=== PATIENT | female | born 1985 | race Caucasian/White ===

== ENCOUNTER 2016-04-27 07:50 | Emergency (ER) | payer OTHER ==
[2016-04-27] MEDS ORDERED: IBUPROFEN 800 MG TABLET PO STA (07:57)
[2016-04-27] MEDS ORDERED: IBUPROFEN 800 MG TABLET PO ONE (08:05)
== END 2016-04-27 09:25 | disposition home or self-care (01) ==
DX: S39.012A Strain of muscle, fascia and tendon of lower back, initial encounter (principal); S80.01XA Contusion of right knee, initial encounter; V43.52XA Car driver injured in collision with other type car in traffic accident, initial encounter; Y92.488 Other paved roadways as the place of occurrence of the external cause
CPT/HCPCS: 72100; 73564; 99283; 99284; A9270

== ENCOUNTER → 2018-01-30 | Outpatient (CLI) | payer OTHER ==
[2018-01-30 19:27] LABS: BILIRUBIN,URINE NEGATIVE (NEGATIVE); GLUCOSE, URINE (UA) NEGATIVE (NEGATIVE); KETONES,URINE (UA) NEGATIVE (NEGATIVE); LEUKOCYTE ESTERASE, URINE NEGATIVE (NEGATIVE); NITRITE,URINE NEGATIVE (NEGATIVE); OCCULT BLOOD,URINE NEGATIVE (NEGATIVE); PH,URINE 7.5 PH (5.0-7.5); PROTEIN,URINE NEGATIVE (NEGATIVE); UROBILINOGEN,URINE 0.2 (NORMAL) E.U./dL (NORMAL)
[2018-01-30 19:41] LABS: BACTERIA,URINE Many /HPF (None Seen); CLARITY,URINE HAZY (CLEAR); RBC,URINE None Seen /HPF (0-5); SQUAMOUS EPITHELIAL CELL,UR MANY Squamous (<= Few)
== END ==
LOC: LAB.R 15:40
PROVIDERS: ATTEND Obstetrics & Gynecology
DX: R30.0 Dysuria (principal)
CPT/HCPCS: 81001

== ENCOUNTER 2018-02-05 16:06 | Outpatient (CLI) | payer OTHER ==
[2018-02-05 16:28] LABS: BILIRUBIN,URINE NEGATIVE (NEGATIVE); GLUCOSE, URINE (UA) NEGATIVE (NEGATIVE); KETONES,URINE (UA) NEGATIVE (NEGATIVE); LEUKOCYTE ESTERASE, URINE NEGATIVE (NEGATIVE); NITRITE,URINE NEGATIVE (NEGATIVE); OCCULT BLOOD,URINE NEGATIVE (NEGATIVE); PROTEIN,URINE NEGATIVE (NEGATIVE); UROBILINOGEN,URINE 0.2 (NORMAL) E.U./dL (NORMAL)
[2018-02-05 16:41] LABS: BACTERIA,URINE Many /HPF (None Seen); CLARITY,URINE HAZY (CLEAR); RBC,URINE None Seen /HPF (0-5); SQUAMOUS EPITHELIAL CELL,UR MANY Squamous (<= Few)
--- NOTE | 2018-02-05 20:36 | Ultrasound Report ---
Reason: Decreased movement, non-reactive NST Procedure Date: 02/05/2018 Accession Number: [id number] / [id number] Procedure: US - OB Biophysical Profile CPT Code: FULL RESULT: EXAM: BIOPHYSICAL PROFILE EXAM DATE: 02/05/2018 08:16 PM. CLINICAL HISTORY: Decreased movement, non-reactive NST. COMPARISON: None available. TECHNIQUE: Real-time sonographic evaluation of the fetus performed by the silk examiner. Multiple hospital insurance representative static images were saved for review. DATING: Established EGA 26 weeks 2 days with AMBROCIO 05/12/2018. GENERAL EVALUATION Morgan . Cardiac activity: 148 bpm. movement: Visualized. Presentation: Vertex Placenta: Anterior position. No evidence for previa or abruption. Amniotic fluid: Normal. ANNETTE 23.3 cm. MVP 7.9 cm. BIOPHYSICAL PROFILE Breathing = 2 Movement = 2 Tone = 2 Amniotic Fluid = 2 Total 11/08 IMPRESSION: 1. Morgan live intrauterine with gestational age 26 weeks 2 days based on established AMBROCIO. 2. Biophysical profile score 8 of 8. KARTIK
[2018-02-05 20:54] VITALS: BP 111/64
== END 2018-02-05 21:04 | disposition home or self-care (01) ==
LOC: WFO 16:06 → FBP 16:10 → WFO 21:04
PROVIDERS: ATTEND Obstetrics & Gynecology
DX: O36.8120 Decreased fetal movements, second trimester, not applicable or unspecified (principal); Z3A.26 26 weeks gestation of pregnancy
CPT/HCPCS: 59025; 76819; 81001; 87086; 99213

== ENCOUNTER 2018-02-08 13:34 | Outpatient (CLI) | payer OTHER ==
[2018-02-08 15:23] LABS: HGB - HEMOGLOBIN 12.7 g/dL (12.0-16.0); MEAN CORPUSCULAR HEMOGLOBIN 32.4 pg (27.0-31.0); MEAN CORPUSCULAR HGB CONC 34.9 g/dL (32.0-36.0); MEAN CORPUSCULAR VOLUME 92.8 fL (81.0-99.0); MEAN PLATELET VOLUME 7.8 fL (7.9-10.8); RED BLOOD COUNT 3.92 10^6/uL (4.20-5.40); WHITE BLOOD COUNT 9.8 x10^3/uL (4.8-10.8)
== END 2018-02-08 13:35 | disposition home or self-care (01) ==
LOC: LAB 13:34
PROVIDERS: ATTEND Obstetrics & Gynecology
DX: Z36.9 Encounter for antenatal screening, unspecified (principal)
CPT/HCPCS: 36415; 82950; 85027; 86850

== ENCOUNTER 2018-02-19 09:06 | Outpatient (CLI) | payer OTHER | END 2018-02-19 09:07 | disposition home or self-care (01) | LOC: LAB 09:06 | PROVIDERS: ATTEND Obstetrics & Gynecology | DX: O99.810 Abnormal glucose complicating pregnancy (principal); Z3A.00 Weeks of gestation of pregnancy not specified | CPT/HCPCS: 36415; 82951; 82952 ==

== ENCOUNTER 2018-03-07 11:19 | Outpatient (CLI) | payer OTHER ==
--- NOTE | 2018-03-07 14:39 | Ultrasound Report ---
Reason: Procedure Date: 03/07/2018 Accession Number: [id number] / [id number] Procedure: US - OB F/U or Repeat CPT Code: FULL RESULT: EXAM: COMPLETE OBSTETRICAL ULTRASOUND EXAM DATE: 03/07/2018 12:22 PM. CLINICAL HISTORY: Size greater than dates. COMPARISON: OB BIOPHYSICAL PROFILE 02/05/2018 8:24 PM. TECHNIQUE: Real-time sonographic evaluation of the fetus performed by the optical manufacturing technician. Multiple product representative static images were saved for review. DATING: Established EGA 30 weeks 4 days with AMBROCIO 05/12/2018 based on physician supplied information. EGA 32 weeks 2 days with AMBROCIO 04/26/2018 based on the current ultrasound. GENERAL EVALUATION Morgan . Cardiac activity: 135 bpm. movement: Visualized. Presentation: Cephalic. Placenta: Anterior position. No evidence for previa. Umbilical cord: 3 vessel cord. Central placental cord origin. Amniotic fluid: ANNETTE of 15.7 MVP 5.8 cm. BIOMETRY Bi-Parietal Diameter (BPD): 8.5 cm, 34 weeks 1 day Head Circumference (HC): 30.8 cm, 34 weeks 2 days Abdominal Circumference (AC): 29 cm, 33 weeks 0 days Femur Length (FL): 5.8 cm, 30 weeks 3 days Estimated Weight: 1992 grams, 77th percentile for 30 weeks 4 days. MATERNAL STRUCTURES The transabdominal cervical length is not adequately assessed. IMPRESSION: 1. Morgan live intrauterine with gestational age 30 weeks 4 days based on referring physician information. 2. Estimated weight is within expected limits for assigned dating. 3. Insufficient assessment of the cervix. If there is concern for cervical pathology or clinical need to assess cervical status, the patient may return for additional transvaginal imaging at no additional charge. RADIA
== END 2018-03-07 11:20 | disposition home or self-care (01) ==
LOC: DI 11:19
PROVIDERS: ATTEND Obstetrics & Gynecology
DX: Z33.1 Pregnant state, incidental (principal)
CPT/HCPCS: 76816

== ENCOUNTER 2018-03-15 14:00 | Emergency (ER) | payer OTHER ==
[2018-03-15] MEDS ORDERED: MAG HYDROX/AL HYDROX/SIMETH 30 ML UDC PO STA ×2 (14:11→14:54)
[2018-03-15] MEDS ORDERED: LIDOCAINE VISCOUS 2% 15 ML UDC MM STA (14:11)
[2018-03-15] MEDS ORDERED: FAMOTIDINE 20 MG/50 ML 50 ML IV ONE (14:46)
--- NOTE | 2018-03-15 14:59 | ED Physician Documentation ---
PD HPI CHEST PAIN - Stated complaint Stated Complaint: CHEST PX/[id number] - Chief complaint Chief Complaint: Cardiac - History obtained from History obtained from: Patient - History of Present Illness Timing - onset: How many hours ago (3) Timing - onset during: Rest Timing - details: Still present Quality: Pain Location: Substernal Worsened by: Inspiration, Position Associated symptoms: Shortness of air. No: Nausea, Vomiting, Cough Similar symptoms before: Has not had sx before - Additional information Additional information: The patient is a 32-year-old female in third trimester, who presents with substernal chest pain that started about 3 hours prior to arrival while lying in bed. She reports associated shortness of breath. She denies cough or fever. She denies nausea or vomiting. She reports history of "really bad heartburn," but states that this pain is different from her heartburn. She denies history of similar symptoms in the past. She is G5, spontaneous AB 3, ectopic 1, currently at 32 weeks gestation. Review of Systems Constitutional: denies: Fever Nose: denies: Congestion Throat: denies: Sore throat Cardiac: reports: Chest pain / pressure. denies: Palpitations Respiratory: reports: Dyspnea. 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 - Present Medications Home Medications: Ambulatory Orders Medication Instructions Recorded Confirmed Pnv95/Ferrous Fumarate/FA 03/15/18 [ Formula Tablet] - Allergies Allergies/Adverse Reactions: Allergies Allergy/AdvReac Type Severity Reaction Status Date / Time No Known Drug Allergies Allergy Verified 03/15/18 14:08 - Social History Does the pt smoke?: No Smoking Status: Never smoker Does the pt drink ETOH?: Yes Does the pt have substance abuse?: No - Immunizations Immunizations are current?: Yes PD ED PE NORMAL - Vitals Vital signs reviewed: Yes (Borderline hypertension.) - General General: Alert and oriented X 3, Well developed/nourished - HEENT HEENT: Atraumatic, Pharynx benign - Neck Neck: No adenopathy, No JVD - Cardiac Cardiac: RRR - Respiratory Respiratory: No respiratory distress, Clear bilaterally, Other (No chest wall tenderness to palpation.) - Abdomen Abdomen: Soft, Other (Gravid uterus, with heart rate 159. Tenderness in epigastric region, without rebound or guarding.) - Back Back: No CVA TTP - Derm Derm: No rash - Extremities Extremities: No edema, No calf tenderness / cord - Neuro Neuro: Alert and oriented X 3, No motor deficit, Normal speech Results - Vitals Vitals: Vital Signs - 24 hr 03/15/18 03/15/18 03/15/18 14:05 14:20 14:25 Temperature 36.1 C L Heart Rate 96 100 Respiratory 22 20 Rate Blood Pressure 137/60 H 123/71 Blood Pressure 123/71 [Right] O2 Saturation 99 99 03/15/18 03/15/18 15:30 16:53 Temperature 36.6 C Heart Rate 92 88 Respiratory 20 20 Rate Blood Pressure 112/69 112/88 H Blood Pressure [Right] O2 Saturation 98 Oxygen O2 Source Room air - EKG (time done) 14:07 Rate: Rate (enter#) (96) Rhythm: NSR [place]: Normal Intervals: Normal [place] QRS: Normal Ischemia: Normal ST segments Computer interpretation: Agree with computer - Rads (name of study) CXR Radiology: Prelim report reviewed, EMP read contemporaneously, See rad report (Normal 2 view chest x-ray.) PD MEDICAL DECISION MAKING - ED course Complexity details: reviewed results, re-evaluated patient, considered differential, d/w patient ED course: The patient's presentation is most consistent with gastroesophageal reflux disease as the cause of her substernal chest pain. I doubt cardiac ischemia, and her electrocardiogram reveals no acute abnormalities. Her presentation does not suggest pneumonia, pneumothorax, and I doubt pulmonary embolus. A chest x- ray reveals no radiographic abnormality. Treatment in the emergency department included administration of GI cocktail which relieved her feeling of heartburn, but she continued to have right substernal chest discomfort. It was because of this ongoing pain that a chest x-ray was performed. Acetaminophen 650 mg administered orally, and an additional 30 mL of Maalox was administered orally. By the time of discharge her pain had subsided to a much lower level of 1 out of 10 in severity. After discharged from the emergency department she went directly to labor and delivery for further monitoring. I discussed with her the likely diagnosis, symptomatic treatment and outpatient follow-up, as well as potentially worrisome signs or symptoms that should prompt reevaluation in the emergency department. Departure - Departure Disposition: 01 Home, Self Care Clinical Impression: Atypical chest pain Gastroesophageal reflux disease Qualifiers: Esophagitis presence: esophagitis presence not specified Qualified Code(s): K21.9 - Gastro-esophageal reflux disease without esophagitis Qualifiers: Weeks of gestation: 32 weeks Qualified Code(s): Z3A.32 - 32 weeks gestation of Condition: Stable Instructions: ED Chest Pain Atypical Unkn Cause, ED GERD Follow-Up: Brianna Gomez ARNP [Primary Care Provider] - Comments: You can use Tylenol, up to 650 mg 4 times daily if needed for pain. You can use liquid antacid, such as Maalox or Mylanta as needed for indigestion or heartburn. Follow-up with your metal solderer as planned. Return to the emergency department if you develop increasing chest pain or shortness of breath, or otherwise worsening symptoms. Discharge Date/Time: 03/15/18 16:58
[2018-03-15] MEDS ORDERED: HYDROcod/ACETAM 5/325 MG TABLET PO STA (16:11)
--- NOTE | 2018-03-15 16:18 | XRAY Report ---
Reason: chest pain Procedure Date: 03/15/2018 Accession Number: [id number] / [id number] Procedure: XR - Chest 2 View X-Ray CPT Code: 90065 FULL RESULT: EXAM: CHEST RADIOGRAPHY EXAM DATE: 03/15/2018 03:58 PM. CLINICAL HISTORY: Chest pain. . COMPARISON: None. TECHNIQUE: Abdomen and pelvis shielded. 2 views. FINDINGS: Lungs/Pleura: No focal opacities evident. No pleural effusion. No pneumothorax. Normal volumes. Mediastinum: Heart and mediastinal contours are unremarkable. Other: None. IMPRESSION: Normal 2-view chest radiography. RADIA
[2018-03-15] MEDS ORDERED: ACETAMINOPHEN 325 MG TABLET PO STA (16:45)
[2018-03-15 16:54] VITALS: BP 112/88
== END 2018-03-15 16:58 | disposition home or self-care (01) ==
LOC: ED 14:00
DX: O26.893 Other specified pregnancy related conditions, third trimester (principal); R07.89 Other chest pain; K21.9 Gastro-esophageal reflux disease without esophagitis; Z3A.32 32 weeks gestation of pregnancy
CPT/HCPCS: 71046; 93005; 96365; 99283; A9270

== ENCOUNTER 2018-04-09 15:29 | Outpatient (CLI) | payer OTHER ==
[2018-04-09 16:53] LABS: CREATININE,URINE 54.5 mg/dL; PROTEIN/CREATININE RATIO,URINE 0.1 (<=0.2)
[2018-04-09 16:54] LABS: BASOPHILS % (AUTO) 0.4 %; EOSINOPHILS % (AUTO) 0.5 %; LYMPHOCYTES # (AUTO) 1.2 10^3/uL (1.5-3.5); LYMPHOCYTES % (AUTO) 13.8 %; MEAN CORPUSCULAR HEMOGLOBIN 31.5 pg (27.0-31.0); MEAN CORPUSCULAR HGB CONC 33.7 g/dL (32.0-36.0); MEAN CORPUSCULAR VOLUME 93.6 fL (81.0-99.0); MEAN PLATELET VOLUME 7.9 fL (7.9-10.8); MONOCYTES # (AUTO) 0.9 10^3/uL (0.0-1.0); MONOCYTES % (AUTO) 10.1 %; NEUTROPHILS # (AUTO) 6.7 10^3/uL (1.5-6.6); NEUTROPHILS % (AUTO) 75.2 %; PLT - PLATELET COUNT 219 10^3/uL (130-450); RED BLOOD COUNT 4.12 10^6/uL (4.20-5.40); RED CELL DISTRIBUTION WIDTH 12.9 % (12.0-15.0); WHITE BLOOD COUNT 8.9 x10^3/uL (4.8-10.8)
[2018-04-09 16:57] VITALS: BP 118/52
[2018-04-09 17:08] LABS: URIC ACID 3.6 mg/dL (2.6-7.2)
--- NOTE | 2018-04-09 18:58 | PROVIDER PROGRESS NOTE ---
Subjective - Prog Note Date Prog Note Date: 04/09/18 Prog Note Time: 18:00 - Subjective Subjective: Srinath Posadas is a 32-year-old 6 para 0 woman at 35 weeks and 2 days gestation who reports persistent headache and blurred vision. She was doing home blood pressure checks and found at night her blood pressure is with spike at 170 over mid 90s. These episodes were accompanied by facial flushing. This morning she went to [facility] and the [employer] [facility] [employer] blood pressure measurement was 160 over mid 80s. The headache is right frontal and occipital. She notes ring finger edema. She has no right upper quadrant tenderness. She reports good movement. She is very anxious about the persistent headache and preeclamptic symptoms. Objective - Vital Signs/Intake & Output Vital Signs: Vital Signs x48h Temp Pulse Resp BP Pulse Ox 04/09/18 16:55 118/52 L 04/09/18 16:00 125/80 04/09/18 15:56 125/87 H 04/09/18 15:53 98.1 F 104 H 20 98 - Lab Results Fish Bones: 04/09/18 16:45 Other Labs: Lab Results x24hrs 04/09/18 04/09/18 04/09/18 Range/Units 16:45 16:45 16:45 WBC 8.9 (4.8-10.8) x10^3/uL RBC 4.12 L (4.20-5.40) 10^6/uL Hgb 13.0 (12.0-16.0) g/dL Hct 38.5 (37.0-47.0) % MCV 93.6 (81.0-99.0) fL MCH 31.5 H (27.0-31.0) pg MCHC 33.7 (32.0-36.0) g/dL RDW 12.9 (12.0-15.0) % Plt Count 219 (130-450) 10^3/uL MPV 7.9 (7.9-10.8) fL Neut # (Auto) 6.7 H (1.5-6.6) 10^3/uL Lymph # (Auto) 1.2 L (1.5-3.5) 10^3/uL [place] # (Auto) 0.9 (0.0-1.0) 10^3/uL Eos # (Auto) 0.0 (0.0-0.7) 10^3/uL Baso # (Auto) 0.0 (0.0-0.1) 10^3/uL Absolute Nucleated RBC 0.00 x10^3/uL Nucleated RBC % 0.1 /100WBC Uric Acid 3.6 (2.6-7.2) mg/dL AST 18 (10-42) IU/L Lactate Dehydrogenase 106 (91-225) IU/L Urine Creatinine mg/dL Ur Total Protein Timed mg/dL Protein/Creatinin Ratio (<=0.2) 04/09/18 Range/Units 15:45 WBC (4.8-10.8) x10^3/uL RBC (4.20-5.40) 10^6/uL Hgb (12.0-16.0) g/dL Hct (37.0-47.0) % MCV (81.0-99.0) fL MCH (27.0-31.0) pg MCHC (32.0-36.0) g/dL RDW (12.0-15.0) % Plt Count (130-450) 10^3/uL MPV (7.9-10.8) fL Neut # (Auto) (1.5-6.6) 10^3/uL Lymph # (Auto) (1.5-3.5) 10^3/uL [place] # (Auto) (0.0-1.0) 10^3/uL Eos # (Auto) (0.0-0.7) 10^3/uL Baso # (Auto) (0.0-0.1) 10^3/uL Absolute Nucleated RBC x10^3/uL Nucleated RBC % /100WBC Uric Acid (2.6-7.2) mg/dL AST (10-42) IU/L Lactate Dehydrogenase (91-225) IU/L Urine Creatinine 54.5 mg/dL Ur Total Protein Timed 6 mg/dL Protein/Creatinin Ratio 0.1 (<=0.2) Physical Exam - Physical Exam General: positive: No acute distress, Anxious, Alert HEENT: positive: Moist mucous membranes Neck: positive: Supple w/out meningeal sx, Thyroid normal Abdomen: positive: Normal Bowel sounds, Other (No organomegaly; no right upper quadrant tenderness or epigastric tenderness) Female : positive: Enlarged uterus (Uterus appropriate size flaccid no contractions vertex presentation), [employer] present Skin: positive: Warm and dry Neurologic: positive: Alert and Oriented X 3, Normal motor/no weakness, Normal Sensation, Normal Speech PSYCH: positive: Anxious Assessment/Plan - Assessment/Plan Assessment: Patient has symptoms suggestive of preeclampsia but blood pressure and measurements are normal on multiple occasions here in labor and delivery. Patient's blood pressure measurements need to be verified. Patient is very anxious and combination of headache pain, and worry may accentuate blood pressure rise. Plan: Reviewed laboratory data with patient and gave her reassurance. Reviewed signs or symptoms of preeclampsia. Patient scheduled for outpatient check with Dr. Nelson tomorrow. Discussed findings with Dr. Nelson.
== END 2018-04-09 17:45 | disposition home or self-care (01) ==
LOC: WFO 15:29 → FBP 15:31 → WFO 17:45
PROVIDERS: ATTEND Obstetrics & Gynecology
DX: O13.3 Gestational [pregnancy-induced] hypertension without significant proteinuria, third trimester (principal); Z3A.35 35 weeks gestation of pregnancy
CPT/HCPCS: 36415; 82570; 83615; 84156; 84450; 84550; 85025; 99214

== ENCOUNTER 2018-04-10 08:00 | Outpatient (CLI) | payer OTHER | END 2018-04-10 23:59 | LOC: LAB.R 08:00 | PROVIDERS: ATTEND Obstetrics & Gynecology | DX: O13.9 Gestational [pregnancy-induced] hypertension without significant proteinuria, unspecified trimester (principal) | CPT/HCPCS: 87797 ==

== ENCOUNTER 2018-04-12 14:01 | Outpatient (CLI) | payer OTHER ==
[2018-04-12 14:29] VITALS: BP 105/61
== END 2018-04-12 15:10 | disposition home or self-care (01) ==
LOC: WFO 14:01 → FBP 14:02 → WFO 15:10
PROVIDERS: ATTEND Obstetrics & Gynecology
DX: O13.3 Gestational [pregnancy-induced] hypertension without significant proteinuria, third trimester (principal); Z3A.35 35 weeks gestation of pregnancy
CPT/HCPCS: 59025

== ENCOUNTER 2018-04-16 14:08 | Outpatient (CLI) | payer OTHER ==
[2018-04-16 14:36] VITALS: BP 115/61
--- NOTE | 2018-04-16 17:31 | Ultrasound Report ---
Reason: measuring 3 weeks greater than dates. gHTN Procedure Date: 04/16/2018 Accession Number: [id number] / [id number] Procedure: US - OB F/U or Repeat CPT Code: FULL RESULT: EXAM: FOLLOW-UP OBSTETRICAL ULTRASOUND EXAM DATE: 04/16/2018 04:17 PM. CLINICAL HISTORY: Measuring 3 weeks greater than dates. gHTN. COMPARISON: OB F/U OR REPEAT 03/07/2018 11:57 AM. TECHNIQUE: Real-time sonographic evaluation of the fetus performed by the fox farmer. Multiple surgical sales representative static images were saved for review. DATING: AMBROCIO based on previous ultrasound of 03/07/2018 is 04/26/2018. GENERAL EVALUATION Morgan . Cardiac activity: 135 bpm. movement: Visualized. Presentation: Cephalic. Placenta: Fundal and right position. Amniotic fluid: Normal. ANNETTE 14.1 cm. MVP 5.2 cm. BIOMETRY Bi-Parietal Diameter (BPD): 10 cm, 41 weeks 0 days. Head Circumference (HC): 36.2 cm, Abdominal Circumference (AC): 35.4 cm, 39 weeks 1 day Femur Length (FL): 7.3 cm, 37 weeks 1 day Estimated Weight: 3797 g, IMPRESSION: 1. Using today's measurements, ultrasound age 39 weeks 0 days and ultrasound EDC 04/23/2018. Clinically reported AMBROCIO of 04/26/2018 within 3 days. 2. Estimated weight 3797 g. KARTIK
--- NOTE | 2018-04-18 09:39 | PROVIDER PROGRESS NOTE ---
Subjective - Prog Note Date Prog Note Date: 04/16/18 Prog Note Time: 14:30 - Subjective Subjective: Eugenio is a 32-year-old 5 para 0 at 36 weeks 2 days gestation who is being closely monitored for growth restriction. Today she received a NST and ultrasound growth check with ANNETTE. Ultrasound results pending External monitor tracing: Reactive, category 1; baseline 120-125, moderate variability, prerequisite accelerations 15 x 15 noted; no concerning decelerations, possible irritability but no definite labor on tocodynamometer. This visit documentation is for NST only. No physician physical exam done other than interpretation of heart tracing
== END 2018-04-16 16:20 | disposition home or self-care (01) ==
LOC: FBP 14:08 → WFO 14:08
PROVIDERS: ATTEND Obstetrics & Gynecology
DX: O36.63X0 Maternal care for excessive fetal growth, third trimester, not applicable or unspecified (principal); Z3A.36 36 weeks gestation of pregnancy
CPT/HCPCS: 59025; 76816

== ENCOUNTER 2018-04-19 13:59 | Outpatient (CLI) | payer OTHER ==
[2018-04-19 14:57] VITALS: BP 125/78
== END 2018-04-19 15:00 | disposition home or self-care (01) ==
LOC: WFO 13:59 → FBP 14:02 → WFO 15:00
PROVIDERS: ATTEND Obstetrics & Gynecology
DX: O16.3 Unspecified maternal hypertension, third trimester (principal); Z3A.36 36 weeks gestation of pregnancy
CPT/HCPCS: 59025

== ENCOUNTER 2018-04-23 14:03 | Outpatient (CLI) | payer OTHER ==
[2018-04-23 14:26] VITALS: BP 138/72
--- NOTE | 2018-04-26 09:03 | PROVIDER PROGRESS NOTE ---
Subjective - Prog Note Date Prog Note Date: 04/23/18 Prog Note Time: 17:00 - Subjective Subjective: Srinath Posadas is a 32-year-old 6 para 0 at 34 weeks and 2 days who is being monitored for increased blood pressure. Today is a NST External heart tracing: Baseline 135-140, moderate variability, 15 x 15 accelerations; no definite uterine contractions Assessment: Category 1 strip reactive NST Continue monitoring antenatally.
== END 2018-04-23 15:20 | disposition home or self-care (01) ==
LOC: WFO 14:03 → FBP 14:21 → WFO 15:20
PROVIDERS: ATTEND Obstetrics & Gynecology
DX: O13.3 Gestational [pregnancy-induced] hypertension without significant proteinuria, third trimester (principal); Z3A.37 37 weeks gestation of pregnancy
CPT/HCPCS: 59025

== ENCOUNTER 2018-04-26 14:03 | Outpatient (CLI) | payer OTHER ==
[2018-04-26 14:36] VITALS: BP 118/82
== END 2018-04-26 14:45 | disposition home or self-care (01) ==
LOC: WFO 14:03 → FBP 14:04 → WFO 14:45
PROVIDERS: ATTEND Obstetrics & Gynecology
DX: O13.3 Gestational [pregnancy-induced] hypertension without significant proteinuria, third trimester (principal); Z3A.37 37 weeks gestation of pregnancy
CPT/HCPCS: 59025

== ENCOUNTER 2018-04-30 14:03 | Outpatient (CLI) | payer OTHER ==
[2018-04-30 17:11] VITALS: BP 124/60
== END 2018-04-30 15:20 | disposition home or self-care (01) ==
LOC: WFO 14:03 → FBP 14:04 → WFO 15:20
PROVIDERS: ATTEND Obstetrics & Gynecology
DX: O13.3 Gestational [pregnancy-induced] hypertension without significant proteinuria, third trimester (principal); Z3A.38 38 weeks gestation of pregnancy
CPT/HCPCS: 59025

== ENCOUNTER 2018-05-03 00:30 | Outpatient (CLI) | payer OTHER ==
[2018-05-03 01:03] LABS: BILIRUBIN,URINE NEGATIVE (NEGATIVE); GLUCOSE, URINE (UA) 100 mg/dL (NEGATIVE); KETONES,URINE (UA) NEGATIVE (NEGATIVE); LEUKOCYTE ESTERASE, URINE NEGATIVE (NEGATIVE); NITRITE,URINE NEGATIVE (NEGATIVE); OCCULT BLOOD,URINE NEGATIVE (NEGATIVE); PROTEIN,URINE NEGATIVE (NEGATIVE); UROBILINOGEN,URINE 0.2 (NORMAL) E.U./dL (NORMAL)
[2018-05-03 01:09] LABS: BACTERIA,URINE Rare /HPF (None Seen); CLARITY,URINE CLEAR (CLEAR); MUCUS,URINE Few Strands; RBC,URINE 0-5 /HPF (0-5); SQUAMOUS EPITHELIAL CELL,UR FEW Squamous (<= Few)
[2018-05-03] MEDS ORDERED: HYDROcod/ACETAM 5/325 MG TABLET PO SCH (01:36)
[2018-05-03 01:50] LABS: BASOPHILS % (AUTO) 0.3 %; EOSINOPHILS # (AUTO) 0.1 10^3/uL (0.0-0.7); EOSINOPHILS % (AUTO) 0.6 %; HGB - HEMOGLOBIN 12.8 g/dL (12.0-16.0); LYMPHOCYTES # (AUTO) 1.3 10^3/uL (1.5-3.5); LYMPHOCYTES % (AUTO) 14.7 %; MEAN CORPUSCULAR HEMOGLOBIN 32.2 pg (27.0-31.0); MEAN CORPUSCULAR HGB CONC 34.9 g/dL (32.0-36.0); MEAN CORPUSCULAR VOLUME 92.2 fL (81.0-99.0); MEAN PLATELET VOLUME 8.3 fL (7.9-10.8); MONOCYTES # (AUTO) 0.9 10^3/uL (0.0-1.0); MONOCYTES % (AUTO) 10.1 %; NEUTROPHILS # (AUTO) 6.7 10^3/uL (1.5-6.6); NEUTROPHILS % (AUTO) 74.3 %; PLT - PLATELET COUNT 225 10^3/uL (130-450); RED BLOOD COUNT 3.98 10^6/uL (4.20-5.40); RED CELL DISTRIBUTION WIDTH 13.3 % (12.0-15.0)
[2018-05-03 02:01] LABS: CREATININE 0.3 mg/dL (0.4-1.0); URIC ACID 3.8 mg/dL (2.6-7.2)
[2018-05-03 08:19] VITALS: BP 139/80
== END 2018-05-03 09:20 | disposition home or self-care (01) ==
LOC: WFO 00:30 → FBP 00:32 → WFO 09:20
PROVIDERS: ATTEND Obstetrics & Gynecology
DX: O13.3 Gestational [pregnancy-induced] hypertension without significant proteinuria, third trimester (principal); O36.63X0 Maternal care for excessive fetal growth, third trimester, not applicable or unspecified; Z3A.38 38 weeks gestation of pregnancy
CPT/HCPCS: 36415; 81001; 82565; 83615; 84450; 84550; 85025; 87086; 99213

== ENCOUNTER 2018-05-08 11:44 | Outpatient (CLI) | payer OTHER ==
[2018-05-08 14:34] VITALS: BP 112/66
== END 2018-05-08 13:10 | disposition home or self-care (01) ==
LOC: WFO 11:44 → FBP 11:48 → WFO 13:10
PROVIDERS: ATTEND Obstetrics & Gynecology
DX: O13.3 Gestational [pregnancy-induced] hypertension without significant proteinuria, third trimester (principal); Z3A.39 39 weeks gestation of pregnancy; Z01.818 Encounter for other preprocedural examination
CPT/HCPCS: 36415; 59025; 85025; 86850; 86900; 86901

== ENCOUNTER 2018-05-08 12:06 | Outpatient (CLI) | payer OTHER ==
[2018-05-08 12:28] LABS: BASOPHILS % (AUTO) 0.3 %; EOSINOPHILS # (AUTO) 0.1 10^3/uL (0.0-0.7); EOSINOPHILS % (AUTO) 0.5 %; HGB - HEMOGLOBIN 12.8 g/dL (12.0-16.0); LYMPHOCYTES # (AUTO) 1.2 10^3/uL (1.5-3.5); LYMPHOCYTES % (AUTO) 10.3 %; MEAN CORPUSCULAR HEMOGLOBIN 32.3 pg (27.0-31.0); MEAN CORPUSCULAR HGB CONC 35.1 g/dL (32.0-36.0); MEAN PLATELET VOLUME 8.3 fL (7.9-10.8); MONOCYTES # (AUTO) 0.9 10^3/uL (0.0-1.0); MONOCYTES % (AUTO) 8.4 %; NEUTROPHILS % (AUTO) 80.5 %; PLT - PLATELET COUNT 218 10^3/uL (130-450); RED BLOOD COUNT 3.97 10^6/uL (4.20-5.40); RED CELL DISTRIBUTION WIDTH 13.1 % (12.0-15.0); WHITE BLOOD COUNT 11.2 x10^3/uL (4.8-10.8)
== END 2018-05-08 12:07 | disposition home or self-care (01) ==
LOC: LAB 12:06
PROVIDERS: ATTEND Obstetrics & Gynecology
DX: Z01.818 Encounter for other preprocedural examination (principal); O16.9 Unspecified maternal hypertension, unspecified trimester
CPT/HCPCS: 36415; 85025; 86850; 86900; 86901

== ENCOUNTER 2018-05-09 08:00 | Inpatient (IN) | payer OTHER ==
[2018-05-09] MEDS ORDERED: LACTATED RINGERS 1,000 ML IV SCH ×2 (08:10→12:00)
[2018-05-09] MEDS: SODIUM CHLORIDE FLUSH 0.9% 10 ML SYRINGE IVP PRN ×2 (08:31→20:11)
--- NOTE | 2018-05-09 08:38 | ANESTHESIA ---
Pre-Anesthesia VS, & Labs - Diagnosis macrasomia, gestational hypertension - Procedure section Vital Signs: Temp Pulse Resp BP Pulse Ox 36.6 C 100 18 117/53 L 99 05/09/18 08:16 05/09/18 08:16 05/09/18 08:16 05/09/18 08:16 05/09/18 08:16 Height 4 ft 11 in Body Mass Index 35.1 - NPO >8 hours - Is Patient ?: Yes - Lab Results Current Lab Results: plts 218 (10^3) Home Medications and Allergies Active Medications Lactated Ringer's (Lr) 1,000 mls @ 150 mls/hr IV .Q6H40M AARON Sodium Chloride (Normal Saline Flush 0.9%) 10 ml IVP PRN PRN PRN Reason: NEEDED PER PROVIDER ORDERS Pnv95/Ferrous Fumarate/FA [ Formula Tablet] 03/15/18 Labatolol 100mg po , twice daily- did not take today Nexium 20mg XL release, daily Allergies/Adverse Reactions: Allergies Allergy/AdvReac Type Severity Reaction Status Date / Time No Known Drug Allergies Allergy Verified 03/15/18 14:08 Anes History & Medical History - Anesthetic History Anesthesia Complications: reports: Post-Operative Nausea/Vomiting - Medical History Cardiovascular: reports: None Pulmonary: reports: None Gastrointestinal: reports: GERD Musculoskeletal: reports: Chronic back pain Endocrine/Autoimmune: reports: None Smoking Status: Never smoker - Surgical History Gynecologic: Oophrectomy Orthopedic: Spine surgery (L4-5, S1, lumbar laminectomy and hardware, fusion) Exam General: Alert Dental: WNL Mouth Opening: Can't Open Mouth Neck Mobility: Limited Mallampati classification: II Thyromental Distance: greater than 6 cm Respiratory: Lungs clear Cardiovascular: Regular rate Mental/Cognitive Status: Alert/Oriented X3 Plan Anesthesia Type: General (backup), Spinal Consent for Procedure(s) Verified and Reviewed: Yes Code Status: Attempt Resuscitation ASA classification: 2-Mild systemic disease Is this case an emergency?: No
[2018-05-09] MEDS ORDERED: CITRIC ACID/SODIUM CITRATE 15 ML UDC PO SCH (09:03)
[2018-05-09] MEDS ORDERED: LACTATED RINGERS 1,000 ML IV ONE ×2 (09:31→10:30)
[2018-05-09] MEDS ORDERED: ONDANSETRON 4 MG/2 ML VIAL IVP ONE (10:00)
[2018-05-09] MEDS ORDERED: SODIUM CHLORIDE 0.9% 10 ML VIAL IV ONE (10:00)
[2018-05-09] MEDS ORDERED: PHENYLEPHRINE 50 MG/5 ML VIAL IV ONE (10:00)
[2018-05-09] MEDS ORDERED: ePHEDrine 50 MG/ML VIAL IVP ONE (10:00)
[2018-05-09] MEDS ORDERED: ACETAMINOPHEN 1,000 MG/100 ML 100 ML IV ONE (10:00)
[2018-05-09] MEDS ORDERED: ceFAZolin 2 GM/50 ML 2 GM/50 ML BAG IV SCH (10:00)
[2018-05-09] MEDS ORDERED: KETOROLAC 30 MG/ML VIAL IVP ONE (10:00)
[2018-05-09] MEDS ORDERED: OXYTOCIN 10 UNIT/ML VIAL IV ONE (10:00)
[2018-05-09] MEDS ORDERED: fentaNYL 100 MCG/2 ML VIAL IVP ONE (10:00)
[2018-05-09] MEDS ORDERED: MORPHINE PF 5 MG/10 ML AMP EP ONE (10:00)
[2018-05-09] MEDS ORDERED: diphenhydrAMINE 25 MG CAPSULE PO PRN (11:06)
[2018-05-09] MEDS ORDERED: ONDANSETRON 4 MG/2 ML VIAL IVP PRN (11:06)
[2018-05-09] MEDS ORDERED: SODIUM CHLORIDE FLUSH 0.9% 10 ML SYRINGE IVP PRN (11:06)
[2018-05-09] MEDS: ACETAMINOPHEN 500 MG TABLET PO SCH ×2 (13:03→20:09)
[2018-05-09] MEDS: KETOROLAC 30 MG/ML VIAL IV SCH ×2 (13:03→20:08)
[2018-05-09] MEDS: oxyCODONE 5 MG TABLET PO PRN ×3 (13:54→21:46)
[2018-05-09] MEDS: SIMETHICONE CHEW 80 MG TABLET PO SCH ×2 (13:54→21:46)
--- NOTE | 2018-05-09 14:15 | OPERATIVE REPORT ---
Operative Report - General Admit Date: 05/09/18 Procedure Date: 05/09/18 Planned Procedure: PLTC/S Pre-Op Diagnosis: Suspected macrosomia Procedure Performed: PLTC/S Post Op Diagnosis: large male - Procedure Note Primary Surgeon: Rashad Jeffries MD Secondary Surgeon: Aiden Sheikh Md Anesthesia Provider: Larry Jones CRNA Anesthesia Technique: Spinal Estimated Blood Loss (mL): 800 - Other Other Information/Narrative: Dictation # [id number]
[2018-05-09] MEDS: SODIUM CHLORIDE FLUSH 0.9% 10 ML SYRINGE IVP SCH (17:02)
--- NOTE | 2018-05-09 17:45 | OPERATIVE REPORT ---
DATE OF SERVICE: 05/09/2018 Physician: Rashad Jeffries MD PREOPERATIVE DIAGNOSIS: Term cyesis, suspected macrosomia. POSTOPERATIVE DIAGNOSIS: Live male , weight 8 pounds 7 ounces. SURGEON: Rashad Jeffries MD PRINTING SUPPLIES SALES REPRESENTATIVE: Dr. Farhad Mancuso ANESTHESIA: Larry Jones CRNA ANESTHETIC: Spinal. ESTIMATED BLOOD LOSS: 800 mL. FINDINGS: Live male , Apgars 8 and 9, weighing 8 pounds 7 ounces. DESCRIPTION OF PROCEDURE: Following adequate spinal anesthesia, patient was placed in the supine pos ition. Beard catheter was placed under sterile conditions. At this point, she was prepped and drape d in the usual fashion. Timeout was performed in which the concerns were addressed. At this point, the procedure was commenced. A Pfannenstiel incision was carried down through subcutaneous tissue to the fascia. The fascia was i ncised transversely. Then, with blunt and sharp dissection, it was freed from the rectus abdominis. The rectus split along the midline. Care was taken to avoid injury to bowel or bladder. Bladder fl ap was developed utilizing Metzenbaums and pickups. A low transverse uterine incision was accomplish ed utilizing knife, bandage scissors and finger spread technique. The head of the was lifted out of the pelvis, delivered. The oropharynx was bulb suctioned. Remainder of the was delive red without difficulty. The cord was doubly clamped and divided, and the was handed to the [facility] team that was standing by. The was vigorous at time of delivery. At this point, the placenta was delivered. There was some difficulty with it being adherent to the u terine wall, but this was . The uterus was exteriorized, wrapped in a moist lap, cleansed i n the internal portion with dry lap. Ring forceps was used to dilate the cervix. The incision itsel f was closed utilizing a running locking suture of 0 Vicryl with an imbricating layer of 0 Vicryl. R einforcement utilizing 0 plain catgut was used at this time. At this point, the cul-de-sac was irrig ated and the uterus was delivered back in the abdominal cavity. The peritoneum was closed utilizing 2-0 Vicryl. The rectus was reapproximated with 2-0 Vicryl. The fascia was closed utilizing looped 0 PDS. Subcutaneous tissue was closed utilizing 2-0 Vicryl and the incision itself closed using 4-0 M onocryl subcuticular. This was then dressed with a wound VAC. Patient tolerated the procedure well and was taken to recovery in stable condition. TD: 05/09/2018 14:27
[2018-05-09] MEDS: DOCUSATE SODIUM 100 MG CAPSULE PO SCH (20:10)
[2018-05-10] MEDS: SODIUM CHLORIDE FLUSH 0.9% 10 ML SYRINGE IVP SCH ×2 (02:11→10:50)
[2018-05-10] MEDS: KETOROLAC 30 MG/ML VIAL IV SCH (02:11)
[2018-05-10] MEDS: ACETAMINOPHEN 500 MG TABLET PO SCH ×3 (04:04→23:03)
[2018-05-10 06:21] LABS: BASOPHILS % (AUTO) 0.2 %; EOSINOPHILS # (AUTO) 0.1 10^3/uL (0.0-0.7); EOSINOPHILS % (AUTO) 0.4 %; HGB - HEMOGLOBIN 10.4 g/dL (12.0-16.0); LYMPHOCYTES # (AUTO) 1.6 10^3/uL (1.5-3.5); LYMPHOCYTES % (AUTO) 14.3 %; MEAN CORPUSCULAR HEMOGLOBIN 31.7 pg (27.0-31.0); MEAN CORPUSCULAR HGB CONC 33.5 g/dL (32.0-36.0); MEAN CORPUSCULAR VOLUME 94.8 fL (81.0-99.0); MEAN PLATELET VOLUME 8.6 fL (7.9-10.8); MONOCYTES # (AUTO) 1.1 10^3/uL (0.0-1.0); MONOCYTES % (AUTO) 9.5 %; NEUTROPHILS # (AUTO) 8.7 10^3/uL (1.5-6.6); NEUTROPHILS % (AUTO) 75.6 %; PLT - PLATELET COUNT 177 10^3/uL (130-450); RED BLOOD COUNT 3.29 10^6/uL (4.20-5.40); RED CELL DISTRIBUTION WIDTH 13.1 % (12.0-15.0); WHITE BLOOD COUNT 11.5 x10^3/uL (4.8-10.8)
--- NOTE | 2018-05-10 07:59 | PROVIDER PROGRESS NOTE ---
Subjective - General Admit Date: 05/09/18 Procedure Date: 05/09/18 Post Op Days: 1 Procedure Performed: PLTC/S - Review of Systems Wound/Incisions: positive: Dressing dry and intact General: positive: No symptoms Pulmonary: positive: No symptoms Cardiovascular: positive: No symptoms Gastrointestinal: positive: Flatus Genitourinary: positive: No symptoms Objective - Patient Data Reviewed Vital Signs: Yes Vital Signs: Vital Signs x48h Temp Pulse Resp BP Pulse Ox 05/10/18 04:00 37.1 C 94 18 122/61 96 05/10/18 00:43 36.8 C 102 H 18 128/64 98 Weight: Weight 05/08/18 05/09/18 05/10/18 23:59 23:59 23:59 Weight (kg) 86.636 kg Intake & Output: Intake and Output Totals x24h 05/08/18 05/09/18 05/10/18 23:59 23:59 23:59 Intake Total 155 Output Total 1375 700 Balance -1220 -700 - Lab Results Lab Results: 05/10/18 05:44 Other Lab Results: Lab Results x24hrs 05/10/18 Range/Units 05:44 WBC 11.5 H (4.8-10.8) x10^3/uL RBC 3.29 L (4.20-5.40) 10^6/uL Hgb 10.4 L (12.0-16.0) g/dL Hct 31.2 L (37.0-47.0) % MCV 94.8 (81.0-99.0) fL MCH 31.7 H (27.0-31.0) pg MCHC 33.5 (32.0-36.0) g/dL RDW 13.1 (12.0-15.0) % Plt Count 177 (130-450) 10^3/uL MPV 8.6 (7.9-10.8) fL Neut # (Auto) 8.7 H (1.5-6.6) 10^3/uL Lymph # (Auto) 1.6 (1.5-3.5) 10^3/uL [place] # (Auto) 1.1 H (0.0-1.0) 10^3/uL Eos # (Auto) 0.1 (0.0-0.7) 10^3/uL Baso # (Auto) 0.0 (0.0-0.1) 10^3/uL Absolute Nucleated RBC 0.01 x10^3/uL Nucleated RBC % 0.1 /100WBC - Current Medications Current Medications: Current Medications Generic Name Dose Route Start Last Admin Trade Name Freq PRN Reason Stop Dose Admin Acetaminophen 1,000 mg 05/09/18 12:00 05/10/18 04:04 Tylenol PO 1,000 mg Q8H AARON Administration Docusate Sodium 100 mg 05/09/18 21:00 05/09/18 20:10 Colace 100mg Capsule PO 100 mg BID AARON Administration Lactated Ringer's 1,000 mls @ 150 mls/hr 05/09/18 08:10 05/09/18 08:32 Lr IV 150 mls/hr .Q6H40M AARON Administration Cefazolin Sodium/Dextrose 2 gm in 50 mls @ 100 mls/hr 05/09/18 10:00 05/09/18 13:03 Ancef 2 Gm/50 Ml IV Not Given Q8H AARON Oxycodone HCl 5 - 10 mg 05/09/18 13:20 05/09/18 21:46 Roxicodone PO 5 mg Q4HR PRN Administration PAIN Simethicone 80 mg 05/09/18 14:00 05/09/18 21:46 Mylicon PO 80 mg TID AARON Administration Sodium Chloride 10 ml 05/09/18 08:09 05/09/18 20:11 Normal Saline Flush 0.9% IVP 10 ml PRN PRN Administration NEEDED PER PROVIDER ORDERS Sodium Chloride 10 ml 05/09/18 17:00 05/10/18 02:11 Normal Saline Flush 0.9% IVP 10 ml 0100,0900,1700 AARON Administration - Physical Exam Wound/Incisions: positive: Dressing dry and intact (woundvac working) Respiratory: positive: Chest non-tender, No respiratory distress, Breath sounds nml Cardiovascular: positive: Regular rate & rhythm, No murmur, No gallop Abdomen: positive: Non-tender, Nml bowel sounds, Mass (U) Back: negative: CVA tenderness (R), CVA tenderness (L) Skin: positive: Color nml, No rash, Warm, Dry Neurologic/Psychiatric: positive: Oriented x3 Impression/Plan - Problem List Problem List: POD #1 excellent progress BP normal
[2018-05-10] MEDS: oxyCODONE 5 MG TABLET PO PRN ×3 (10:20→20:22)
[2018-05-10] MEDS: DOCUSATE SODIUM 100 MG CAPSULE PO SCH ×2 (10:21→21:43)
[2018-05-10] MEDS: SIMETHICONE CHEW 80 MG TABLET PO SCH ×2 (10:21→15:30)
[2018-05-10] MEDS ORDERED: KETOROLAC 30 MG/ML VIAL IV ONE (11:00)
[2018-05-10] MEDS: IBUPROFEN 800 MG TABLET PO SCH ×2 (15:29→21:43)
[2018-05-10] MEDS: POLYETHYLENE GLYCOL 3350 17 GM PACKET PO PRN (18:15)
[2018-05-11] MEDS: IBUPROFEN 800 MG TABLET PO SCH ×2 (04:38→13:46)
[2018-05-11] MEDS ORDERED: BISACODYL 10 MG SUPP PR PRN (07:42)
--- NOTE | 2018-05-11 07:43 | PROVIDER PROGRESS NOTE ---
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) General: positive: No symptoms (Pain 3/10 breast milk not in yet) Pulmonary: positive: No symptoms Cardiovascular: positive: No symptoms Gastrointestinal: positive: Flatus (No stool yet) Genitourinary: positive: No symptoms Objective - Patient Data Reviewed Vital Signs: Yes Vital Signs: Vital Signs x48h Temp Pulse Resp BP Pulse Ox 05/11/18 04:49 36.6 C 95 18 135/74 H 97 Weight: Weight 05/09/18 05/10/18 05/11/18 23:59 23:59 23:59 Weight (kg) 86.636 kg Intake & Output: Intake and Output Totals x24h 05/09/18 05/10/18 05/11/18 23:59 23:59 23:59 Intake Total 155 Output Total 1375 700 Balance -1220 -700 - Lab Results Lab Results: 05/10/18 05:44 Other Lab Results: Lab Results x24hrs 05/10/18 Range/Units 05:44 WBC 11.5 H (4.8-10.8) x10^3/uL RBC 3.29 L (4.20-5.40) 10^6/uL Hgb 10.4 L (12.0-16.0) g/dL Hct 31.2 L (37.0-47.0) % MCV 94.8 (81.0-99.0) fL MCH 31.7 H (27.0-31.0) pg MCHC 33.5 (32.0-36.0) g/dL RDW 13.1 (12.0-15.0) % Plt Count 177 (130-450) 10^3/uL MPV 8.6 (7.9-10.8) fL Neut # (Auto) 8.7 H (1.5-6.6) 10^3/uL Lymph # (Auto) 1.6 (1.5-3.5) 10^3/uL Burt # (Auto) 1.1 H (0.0-1.0) 10^3/uL Eos # (Auto) 0.1 (0.0-0.7) 10^3/uL Baso # (Auto) 0.0 (0.0-0.1) 10^3/uL Absolute Nucleated RBC 0.01 x10^3/uL Nucleated RBC % 0.1 /100WBC - Current Medications Current Medications: Current Medications Generic Name Dose Route Start Last Admin Trade Name Freq PRN Reason Stop Dose Admin Acetaminophen 1,000 mg 05/09/18 12:00 05/10/18 23:03 Tylenol PO 1,000 mg Q8H AARON Administration Docusate Sodium 100 mg 05/09/18 21:00 05/10/18 21:43 Colace 100mg Capsule PO 100 mg BID AARON Administration Ibuprofen 800 mg 05/10/18 11:00 05/11/18 04:38 Motrin PO 800 mg Q6H AARON Administration Oxycodone HCl 5 - 10 mg 05/09/18 13:20 05/10/18 20:22 Roxicodone PO 5 mg Q4HR PRN Administration PAIN Polyethylene Glycol 17 gm 05/10/18 17:45 05/10/18 18:15 Miralax PO 17 gm DAILY PRN Administration Bowel Protocol Simethicone 80 mg 05/09/18 14:00 05/10/18 15:30 Mylicon PO 80 mg TID AARON Administration Sodium Chloride 10 ml 05/09/18 08:09 05/09/18 20:11 Normal Saline Flush 0.9% IVP 10 ml PRN PRN Administration NEEDED PER PROVIDER ORDERS Sodium Chloride 10 ml 05/09/18 17:00 05/10/18 10:50 Normal Saline Flush 0.9% IVP 10 ml 0100,0900,1700 AARON Administration - Physical Exam Wound/Incisions: positive: Dressing dry and intact General Appearance: positive: No acute distress, Alert Respiratory: positive: Chest non-tender, No respiratory distress, Breath sounds nml Cardiovascular: positive: Regular rate & rhythm, No murmur, No gallop Abdomen: positive: Non-tender, No organomegaly, Nml bowel sounds, No distention Back: negative: CVA tenderness (R), CVA tenderness (L) Extremities: negative: Calf tenderness, Jim's sign/cords Neurologic/Psychiatric: positive: Oriented x3 Impression/Plan - Problem List Problem List: POD #2 progressing well Send home. RTC next week for woundVAC Discharge meds Oxycodone 5 mg 20 Motrin 600 Mg Miralax reviewed breast feeding Pt wants Stan
--- NOTE | 2018-05-11 07:52 | Discharge Plan ---
Discharge Plan Disposition: 01 Home, Self Care Condition: Good Diet: Regular Activity Restrictions: No Restrictions Driving Restrictions: Yes (do not drive while on Narcotics) No Smoking: If you smoke, Please STOP! Call for help.
--- NOTE | 2018-05-11 08:27 | DISCHARGE SUMMARY ---
Physician: Rashad Jeffries MD DATE OF ADMISSION: 05/09/2018 DATE OF DISCHARGE: 05/11/2018 ADMISSION DIAGNOSES 1. 39 weeks. 2. Suspected macrosomia. DISCHARGE DIAGNOSES 1. 39 weeks. 2. Suspected macrosomia. PROCEDURE PERFORMED: Primary low transverse section. PRESENTING HISTORY: Patient is a 32-year-old. She is 1, para 0. She presents for elective primary section because of macrosomia. She had an ultrasound done at 36 weeks, which showed an infant which was believed to be in the 7 to 8-pound range. LABORATORY DATA: her white count was 11.5, hemoglobin fell to 10.4, hematocrit was 31.2, platelets were 177. HOSPITAL COURSE: Patient admitted, taken to the operating room, at which time a primary low transverse section was performed without difficulty. At the time of delivery, she was noted to have a large , which had excellent Apgars. Her course has been unremarkable. Her diet has been advanced, she is currently taking a regular diet, she is ambulating, she is voiding. She is having adequate pain control. She is being discharged to home on: 1. Oxycodone 5 mg #20. 2. Motrin 600 mg #30. 3. As well as MiraLax. She is instructed to follow up in the clinic in one week for wound VAC removal. She has been instructed to monitor for signs of mastitis. She plans to utilize a Mirena for contraception. TD: 05/11/2018 07:57 BRAEDEN
[2018-05-11 08:58] VITALS: BP 126/72
[2018-05-11] MEDS: oxyCODONE 5 MG TABLET PO PRN ×2 (09:04→13:46)
[2018-05-11] MEDS: DOCUSATE SODIUM 100 MG CAPSULE PO SCH (09:04)
[2018-05-11] MEDS: SIMETHICONE CHEW 80 MG TABLET PO SCH (09:04)
[2018-05-11] MEDS: ACETAMINOPHEN 500 MG TABLET PO SCH (09:04)
[2018-05-11] MEDS: POLYETHYLENE GLYCOL 3350 17 GM PACKET PO PRN (09:19)
== END 2018-05-11 14:15 | disposition home or self-care (01) | DRG 788 ==
LOC: FBP 08:00
PROVIDERS: ADMIT Obstetrics & Gynecology; ATTEND Obstetrics & Gynecology
PROC: 10D00Z1 Extraction of Products of Conception, Low, Open Approach (ICD-10-PCS; principal; 2018-05-09 09:00)
DX: O36.63X0 Maternal care for excessive fetal growth, third trimester, not applicable or unspecified (principal); Z3A.39 39 weeks gestation of pregnancy; Z37.0 Single live birth; P08.1 Other heavy for gestational age newborn; Z87.891 Personal history of nicotine dependence; Z98.1 Arthrodesis status; O99.214 Obesity complicating childbirth; E66.01 Morbid (severe) obesity due to excess calories; O34.83 Maternal care for other abnormalities of pelvic organs, third trimester; N83.209 Unspecified ovarian cyst, unspecified side; J30.9 Allergic rhinitis, unspecified; O26.893 Other specified pregnancy related conditions, third trimester; H52.209 Unspecified astigmatism, unspecified eye; Z90.79 Acquired absence of other genital organ(s)
CPT/HCPCS: 36415; 85025